=== PATIENT | male | born 1945 | race Caucasian/White ===

== ENCOUNTER 2025-10-29 21:17 | Emergency (ER) | payer SELFPAY ==
[~2025-10-29] VITALS: Ht 170.2 cm; Wt 70.0 kg
[2025-10-29 21:26] VITALS: TEMP 98.2; O2SAT 99
[2025-10-29] MEDS: ACETAMINOPHEN 500MG TABLET PO ONE (22:07)
[2025-10-29 23:39] VITALS: BP 164/75; PULSE 86; RESP 16; O2SAT 98
== END 2025-10-29 23:45 | disposition home or self-care (01) ==
LOC: EDBD 21:17 → ER 21:17
DX: S00.03XA Contusion of scalp, initial encounter (principal); R51.9 Headache, unspecified; F03.90 Unspecified dementia, unspecified severity, without behavioral disturbance, psychotic disturbance, mood disturbance, and anxiety; Y04.0XXA Assault by unarmed brawl or fight, initial encounter; Y93.89 Activity, other specified; Y92.89 Other specified places as the place of occurrence of the external cause; Y99.8 Other external cause status
CPT/HCPCS: 99284